=== PATIENT | female | born 1985 | race Caucasian/White ===

== ENCOUNTER 2024-11-30 22:32 | Emergency (ER) | payer MEDICARE, MEDICAID, SELFPAY ==
[2024-11-30 22:42] VITALS: BP 111/70; BP 127/59; PULSE 69; PULSE 77; RESP 16; TEMP 36.6; O2SAT 100; O2SAT 97; BMI 33.9
[2024-12-01 01:25] VITALS: BP 90/53; PULSE 62; RESP 17; TEMP 36.7; O2SAT 99
--- NOTE | 2024-12-01 04:13 | ED.ALLEREA ---
HPI - Allergic Reaction General Chief complaint: Allergic Reaction Stated complaint: allergic reaction Time Seen by Provider: 11/30/24 22:51 Source: patient and EMS Mode of arrival: EMS Limitations: no limitations History of Present Illness ED Provider: Dr. 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 Patient states she developed a rash about an hour before suddenly feeling dizzy, feeling her throat swell and the realized her tongue was swelling as well. She called to her boyfriend who was able to call 911, but not before the patient nearly lost consciousness. He attempted to have her swallow Benadryl but she could not. She had an Epi pen in the kitchen, but could not get to it and could not instruct her boyfriend to use it. EMS arrived and gave her an Epi pen which significantly improved her symptoms. EMS reports her tongue was sticking out of her mouth before they administered the epi pen and 50mg IM benadryl. Currently, patient is talking in full sentences, no muffled voice, no stridor, no rashes, no vomiting. She is not sure what she could have consumed that she would be allergic to, but does admit to prior allergy testing that she was told she is allergic to many things including peaches, pears and 0.25 corn . She had both Twizzlers candy and Doritos corn chips today. Related Data Previous Rx's ?Medication ?Instructions ?Recorded prednisone 50 mg tablet 50 mg PO DAILY 5 days #5 tabs 12/01/24 Allergies Allergy/AdvReac Type Severity Reaction Status Date / Time adhesive tape Allergy Hives Verified 11/30/24 22:51 amoxicillin Allergy Anaphylaxis Verified 11/30/24 22:51 peach Allergy Unknown Verified 11/30/24 22:51 Penicillins Allergy Anaphylaxis Verified 11/30/24 22:51 shellfish derived (shellfish) Allergy Anaphylaxis Verified 11/30/24 22:51 strawberry Allergy Unknown Verified 11/30/24 22:51 Review of Systems Review of Systems: as per HPI, full review of systems performed and negative but for the above mentioned pertinent positives and negatives. [facility] Past Medical History Attestation statement: The following information was validated with the patient. [facility] Narrative: uses marijuana, denies alcohol or tobacco use Source: nursing notes reviewed Social History Social History Smoked in Last 30 Days: No Use of substances other than those prescribed or required for medical reasons: No Advance Directives: No Advance Directives Information Provided: No Do you have a plan to hurt others: No Plan Patient : No Physical Exam ED Exam Exam: GENERAL: Ill-Appearing, appears uncomfortable. SKIN: Normal skin color for ethnicity, warm, dry, no rashes noted. HEENT:? Normocephalic, atraumatic, no stridor, dry mucous membranes, dentition intact, EOMI, posterior oropharynx is nonerythematous, uvual midline, no edema noted. NECK: Soft, supple, full ROM, midline structures nontender, no step-offs, no deformities, no lymphadenopathy. CHEST: Heart regular tachycardia, no murmurs, symmetric chest rise and fall. PULMONARY: Clear to auscultation bilaterally, diminished at the bases, no labored breathing, no wheezes/rhales/rhonchi. ABDOMINAL: Soft, nondistended, nontender, positive bowel sounds in all quadrants. : Deferred. MUSCULOSKELETAL: Normal tone, full range of motion, no deformities, no peripheral edema. NEURO: Alert and oriented x3, CN II through XII intact, equal strength and sensation bilateral upper and lower extremities, no focal neurologic deficits.? PSYCHIATRIC: Flat affect, fluid speech, good eye contact and appropriate demeanor. Vital Signs: Vital Signs - 24 hr 11/30/24 22:42 12/01/24 01:25 Temperature 97.9 F 98.0 F Pulse Rate 77 62 Respiratory Rate 16 17 Blood Pressure 111/70 90/53 L Pulse Oximetry 97 99 Oxygen Delivery Method Room Air Room Air BMI result Body Mass Index 33.9 Medications Administered Discontinued Medications Generic Name Dose Route Start Last Admin Trade Name Freq PRN Reason Stop Dose Admin Methylprednisolone Sodium Succinate 125 mg 11/30/24 23:07 11/30/24 23:36 Methylprednisolone Sod Succ 125 Mg/2 Ml Vial IVPUSH 11/30/24 23:08 125 mg ONCE ONE Administration Medical Decision Making Medical Decision Making MDM Narrative: Patient presented today for signs and symptoms of possible allergic reaction. Differential diagnosis did include angioedema, anaphylaxis, mast cell activation, drug reaction, infection, among others. Physical examination does not show any signs of multiple system involvement such as anaphylaxis, though this was considered.? After epi pen was given by EMS, patient is not having any wheezing, nausea or vomiting, abdominal pain, or continued swelling of the tongue or oropharynx.? Airway is unobstructed and blood pressures are within normal limits. She was observed for several hours post administration to evaluate for return of symptoms after Epi wore off. Given steriods IV. Anaphylaxis precautions have been given to the patient in a note to return immediately for signs and symptoms of this.? Patient was offered/provided with a prescription for an Epi-Pen. Patient has been urged to follow up with securities trader as outpatient.? All questions have been answered and patient is stable for discharge. They are welcome back at any time for re-evaluation as we are always happy to do so. Differential Diagnosis Differential Diagnoses: The differential diagnosis associated with the presentation includes (as above) Admission/Observation Consideration of admission/observation: Escalation of care including admission/observation considered Independent Historian Clinical information obtained from an independent historian. History obtained from or confirmed by: EMS Prescription Management I considered prescription management with: Other (steroids ) Chronic Conditions Patient?s care impacted by: Other (asthma, myositis) Discharge Plan Discharge Clinical Impression: Anaphylaxis Patient Disposition: Home, Self-Care Instructions: General Allergic Reaction (ED) Prescriptions: New prednisone 50 mg tablet 50 mg PO DAILY 5 Days Qty: 5 0RF Interventions: ED Discharge Assessment Last Done: 12/01/24 04:45 Discharge Date/Time: 12/01/24 04:45 Print Language: [place]
[2024-12-01 04:40] VITALS: BP 101/60; PULSE 72; RESP 18; TEMP 36.7; O2SAT 95
[2024-12-01 04:45] VITALS: BP 101/60; PULSE 72; RESP 18; TEMP 36.7; O2SAT 95
== END 2024-12-01 04:45 | disposition home or self-care (01) ==
PROVIDERS: Emergency Provider Emergency Medicine; PCP Family Medicine
DX: R13.10 Dysphagia, unspecified (principal); R42 Dizziness and giddiness; L50.0 Allergic urticaria; T78.00XA Anaphylactic reaction due to unspecified food, initial encounter; R22.1 Localized swelling, mass and lump, neck; X58.XXXA Exposure to other specified factors, initial encounter
CPT/HCPCS: 96374; 99284; J2919